=== PATIENT | female | born 2000 | race Caucasian/White ===

== ENCOUNTER 2021-04-05 13:33 | Emergency (ER) | payer MEDICAID, OTHER ==
[~2021-04-05] VITALS: Ht 160 cm; Wt 43.6 kg
[2021-04-05 14:05] LABS: BASO # 0.1 10^3/uL (0.0-0.2); BASO % 0.7 % (0.0-1.0); EOS # 0.1 10^3/uL (0.0-0.5); HEMATOCRIT 41.2 % (36.0-47.0); HEMOGLOBIN 15.1 g/dl (12.0-15.5); LYMPH # 1.9 10^3/uL (1.5-5.0); LYMPH % 27.6 % (24.0-44.0); MEAN CORPUSCULAR HEMOGLOBIN 33.6 pg (27.0-33.0); MEAN CORPUSCULAR VOLUME 91.6 fl (80.0-96.0); MONO # 0.9 10^3/uL (0.0-0.8); MONO % 12.5 % (2.0-8.0); NEUTROPHILS % 57.9 % (36.0-66.0); PLATELET COUNT, AUTOMATED 237 10^3/uL (150-450); WHITE BLOOD COUNT 6.9 10^3/uL (4.0-10.0)
[2021-04-05 14:14] LABS: MEAN CORPUSCULAR HGB CONC 36.7 g/dl (32.0-36.5)
[2021-04-05] MEDS ORDERED: RHOGAM 300 MCG (1500 IU) INJ (J2790) IM ONE (15:30)
[2021-04-05 15:34] LABS: APPEARANCE, URINE CLOUDY (CLEAR); BACTERIA, URINE AUTO NEGATIVE (NEGATIVE); BILIRUBIN, URINE AUTO NEGATIVE (NEGATIVE); BLOOD, URINE BLOOD 3+ (NEGATIVE); COLOR, URINE YELLOW (YELLOW); GLUCOSE, URINE (UA) AUTO NEGATIVE (NEGATIVE); KETONE, URINE AUTO 1+ mg/dL (NEGATIVE); LEUKOCYTE ESTERASE, URINE AUTO NEGATIVE (NEGATIVE); MUCUS, URINE LARGE (NEGATIVE); NITRITE, URINE AUTO NEGATIVE (NEGATIVE); PROTEIN, URINE AUTO 1+ mg/dL (NEGATIVE); RBC, URINE AUTO TNTC /HPF (0-3); SPECIFIC GRAVITY URINE AUTO 1.031 (1.002-1.035); SQUAMOUS EPITHELIAL CELL UR AU 3 /HPF (0-6); UROBILINOGEN, URINE AUTO 0.2 mg/dL (0.0-2.0); WBC, URINE AUTO 4 /HPF (0-3)
[2021-04-05 16:32] VITALS: BP 126/74
== END 2021-04-05 16:35 | disposition home or self-care (01) ==
LOC: M ED 13:33
DX: O20.0 Threatened abortion (principal); Z32.01 Encounter for pregnancy test, result positive; O20.8 Other hemorrhage in early pregnancy; Z87.59 Personal history of other complications of pregnancy, childbirth and the puerperium; O99.330 Smoking (tobacco) complicating pregnancy, unspecified trimester; O99.320 Drug use complicating pregnancy, unspecified trimester
CPT/HCPCS: 81001; 84702; 85025; 86850; 86900; 86901; 87086; 96372; 99284; J2790

== ENCOUNTER → 2021-04-07 | Outpatient (CLI) | payer MEDICAID | LOC: M LAB 11:38 | PROVIDERS: ATTEND Physician Assistant | DX: O20.0 Threatened abortion (principal); O46.90 Antepartum hemorrhage, unspecified, unspecified trimester ==